=== PATIENT | female | born 1980 | race Caucasian/White ===

== ENCOUNTER 2016-12-24 08:53 | Emergency (ER) | payer MEDICAID ==
[2016-12-24 09:00] VITALS: BP 137/82; PULSE 111; TEMP 98.2; BMI 33.4
--- NOTE | 2016-12-24 09:09 | EDPRACDOC ---
- General Information Chief Complaint: Skin Rash (not drug induced) Stated Complaint: SKIN IRRITATION Mode Of Arrival: Car Home Medications: Home Medications Sertraline HCl 150 mg PO HS 07/25/16 Hydrocodone/Acetaminophen [Lortab 5-325 mg Tablet] 1 each PO Q6-8H #14 tablet Ondansetron [Zofran Odt] 4 mg PO Q6H PRN #20 tab.rapdis 10/15/16 Sulfamethoxazole/Trimethoprim [Bactrim Ds Tablet] 1 tab PO BID #14 tab 10/15/16 Permethrin [ELIMITE (for skin treatment of scabies)] 60 gm TOP DIR #1 tube Allergies/Adverse Reactions: Allergies Allergy/AdvReac Type Severity Reaction Status Date / Time No Known Allergies Allergy Verified 10/15/16 09:40 - History of Present Illness Onset: 3 YEARS HPI: C/o multiple small bumps all over her body that itch, and that has been appearing intermittently x 3 yrs. No other complaints. Denies fever, N/V/D, cp, sob, cough, sore throat, changes in urine or BM. Rash Location: Reports: Generalized Quality: Reports: Pruritic, Red Known Exposure To: Reports: Scabies Relevant History of: Reports: None Irritability: Severe Pain Severity: None Associated Signs and Symptoms: Reports: None ED Past Medical History - History Reviewed Yes Nurses notes reviewed and agree except as marked - Patient Medical History Cardiac History: Reports: Atrial Fibrillation Respiratory History: Reports: COPD GI/ History: Reports: Kidney Stones Psychological History: Reports: Depression Systemic History: Denies: Cancer Surgical History: Reports: Hysterectomy, Other (CSXN, BTL) - Family Medical History Reports: Cardiac Disorders. Denies: Hypertension, Diabetes, Cancer, Stroke - Social Medical History Smoking Status: Heavy tobacco smoker (5 or more cigarettes/day or daily pipe/ cigar) EDM Review of Systems - Review of Systems ROS Negative Except as Marked: Yes All systems reviewed and were negative except as marked Integumentary: Rash - Physical Exam Constitutional: No apparent distress, Alert Oriented to: Time, Person, Place Last recorded Vital Signs: Last Vital Signs Temp 98.2 F 12/24/16 08:56 Pulse 111 12/24/16 08:56 Resp 18 12/24/16 08:56 BP 137/82 12/24/16 08:56 Pulse Ox 98 12/24/16 08:56 Oxygen Pulse Oxygen Saturation 98 O2 Device Room Air Oxygen Flow Rate Fraction of Inspired Oxygen ( FIO2) - HEENT Head: Normal Eye Exam: negative: Conjunctival Injection, Scleral Icterus Oropharynx: negative: Drooling TMJ: Normal Nose: No Symptoms Reported Neck: Normal - Respiratory/Cardiovascular Respiratory: Normal - CTA Cardiovascular: Normal - GI Tenderness: Non tender - Musculoskeletal Back: Normal Extremities: Normal - Integumentary Skin: Rash - Neurologic Mood Description: Normal Thought: Coherent Perception: Normal Decision Time to Discharge: 09:10 - Departure Disposition: Home Condition: Stable Final Diagnosis: Scabies Instructions: Scabies (ED) Education/Counseling Given To: Patient Education/Counseling Given Regarding: Diagnosis, Treatment, Prognosis, Follow Up Referrals: Earnest Silva MD [Primary Care Provider] - One Week Prescriptions: New Permethrin [ELIMITE (for skin treatment of scabies)] 60 gm TOP DIR #1 tube No Action Sertraline HCl 150 mg PO HS Hydrocodone/Acetaminophen [Lortab 5-325 mg Tablet] 1 each PO Q6-8H #14 tablet Ondansetron [Zofran Odt] 4 mg PO Q6H PRN #20 tab.rapdis PRN Reason: Nausea/Vomiting Sulfamethoxazole/Trimethoprim [Bactrim Ds Tablet] 1 tab PO BID #14 tab Additional Instructions: Follow up with dermatology and primary care. Use permethrin as directed. Return to Ed for any new or worsening symptoms.
== END 2016-12-24 09:34 | disposition home or self-care (01) ==
LOC: ED 08:53
DX: B86 Scabies (principal)
CPT/HCPCS: 99282